=== PATIENT | female | born 1945 | race Caucasian/White ===

== ENCOUNTER 2016-06-17 21:11 | Emergency (ER) | payer MEDICARE, BC ==
[2016-06-17] MEDS ORDERED: AMOXICILLIN 250 MG CAP PO ONE (22:42)
[2016-06-17] MEDS ORDERED: SULFAMETHOXAZOLE/TRIMETHOPRI 800/160 MG PO ONE (22:43)
[2016-06-17] MEDS ORDERED: AMOXICILLIN 125/5 ML BOTTLE ONE (23:02)
[2016-06-17] MEDS ORDERED: SULFAMETHOXAZOLE/TRIMETHOPRI 800/160 MG ONE (23:02)
[2016-06-17] MEDS ORDERED: ACETAMINOPHEN 325 MG PO ONE (23:21)
[2016-06-17] MEDS ORDERED: ACETAMINOPHEN 325 MG ONE (23:22)
[2016-06-18 01:49] VITALS: BP 137/63; PULSE 73; RESP 20; TEMP 101.8; O2SAT 97
== END 2016-06-17 23:58 | disposition home or self-care (01) | DRG 639 ==
LOC: ED 21:11
DX: E11.621 Type 2 diabetes mellitus with foot ulcer (principal); L97.519 Non-pressure chronic ulcer of other part of right foot with unspecified severity
CPT/HCPCS: 87070; 87077; 87186; 99284; 99285; A6232

== ENCOUNTER 2017-03-20 07:38 | Inpatient (IN) | payer MEDICARE, BC ==
[2017-03-20] MEDS ORDERED: VANCOMYCIN HCL 500 MG PDS 1,000 MG in SODIUM CHLORIDE 0.9% 250 ML 250 ML IV ONE (14:32)
[2017-03-20] MEDS ORDERED: PIPERACILLIN/TAZOBACT 3.375 GM 3.375 GM in SODIUM CHLORIDE 0.9% 100 ML 100 ML IV ONE (14:32)
[2017-03-20 14:34] LABS: HEMATOCRIT 28 % (35-47); MEAN CORPUSCULAR HGB CONC 31.9 gm/dl (32.0-36.0); MEAN CORPUSCULAR VOLUME 83 fL (81-99)
[2017-03-20 14:35] LABS: NEUTROPHILS % (AUTO) 62.3 % (37-80)
[2017-03-20 14:36] LABS: MONOCYTES % (AUTO) 7.1 % (0-12)
[2017-03-20 14:38] LABS: BASOPHILS % (AUTO) 1 % (0-3); EOSINOPHILS % (AUTO) 3 % (0-9)
[2017-03-20 15:02] LABS: ALBUMIN 2.4 gm/dl (3.4-5.0); CALCIUM 10.2 mg/dl (8.5-10.1); POTASSIUM 4.8 mMol/L (3.5-5.1)
[2017-03-20] MEDS ORDERED: SODIUM CHLORIDE 0.9% 100 ML 100 ML IV ONE (15:46)
[2017-03-20] MEDS ORDERED: PIPERACILLIN/TAZOBACT 3.375 GM PDS IV ONE ×2 (15:46→20:12)
[2017-03-20] MEDS ORDERED: PATIENT EDUCATION 1 MISC PRN (16:28)
[2017-03-20] MEDS ORDERED: VANCOMYCIN HYDROCHLORIDE 500 MG PDS IV ONE (16:30)
[2017-03-20] MEDS ORDERED: SODIUM CHLORIDE 0.9% 250 ML 250 ML IV ONE (16:32)
[2017-03-20] MEDS: SODIUM CHLORIDE 0.9% 1000ML 1,000 ML IV SCH (18:02)
[2017-03-20] MEDS ORDERED: PHARMACOKINETICS 1 MISC PRN (18:51)
[2017-03-20] MEDS ORDERED: HYDRALAZINE HYDROCHLORIDE 10 MG TAB PO ONE (19:05)
[2017-03-20] MEDS: PIPERACILLIN/TAZOBACT 3.375 GM 3.375 GM in SODIUM CHLORIDE 0.9% 100 ML 100 ML IV SCH (20:24)
[2017-03-20] MEDS: INSULIN GLARGINE, RECOMBINAN 100 U/ML SOL SC SCH (20:47)
[2017-03-20] MEDS: HUMALOG PEN 100 U/ML SC SCH (20:47)
[2017-03-21] MEDS ORDERED: SODIUM CHLORIDE 0.9% 100 ML 100 ML IV ONE ×4 (00:44→18:36)
[2017-03-21] MEDS ORDERED: PIPERACILLIN/TAZOBACT 3.375 GM PDS IV ONE ×4 (00:44→18:36)
[2017-03-21] MEDS: PIPERACILLIN/TAZOBACT 3.375 GM 3.375 GM in SODIUM CHLORIDE 0.9% 100 ML 100 ML IV SCH ×4 (00:51→18:43)
[2017-03-21] MEDS: SODIUM CHLORIDE 0.9% 1000ML 1,000 ML IV SCH ×2 (04:19→17:51)
[2017-03-21] MEDS ORDERED: SODIUM CHLORIDE 0.9% 250 ML 250 ML IV ONE (05:28)
[2017-03-21] MEDS ORDERED: VANCOMYCIN HYDROCHLORIDE 500 MG PDS IV ONE (05:28)
[2017-03-21] MEDS: VANCOMYCIN HCL 500 MG PDS 1,500 MG in SODIUM CHLORIDE 0.9% 250 ML 250 ML IV SCH (05:41)
[2017-03-21 07:23] LABS: CALCIUM 9.1 mg/dl (8.5-10.1); POTASSIUM 4.9 mMol/L (3.5-5.1)
[2017-03-21 07:58] LABS: HEMATOCRIT 28 % (35-47)
[2017-03-21] MEDS: HUMALOG PEN 100 U/ML SC SCH ×4 (08:27→21:28)
[2017-03-21] MEDS ORDERED: FERROUS SULFATE 325 MG TAB PO SCH (09:00)
[2017-03-21] MEDS ORDERED: INSULIN GLARGINE, RECOMBINAN 100 U/ML SOL SC ONE (09:00)
[2017-03-21] MEDS: FERROUS GLUCONATE 324 MG TABLET PO SCH (09:20)
[2017-03-21] MEDS: AMLODIPINE 5 MG TAB PO SCH (09:52)
[2017-03-21] MEDS: LISINOPRIL 20 MG TAB PO SCH (10:51)
[2017-03-21] MEDS: MULTIVITAMIN2 1 EA TAB PO SCH (10:51)
[2017-03-21] MEDS: FUROSEMIDE 20 MG TAB PO SCH (10:51)
[2017-03-21 21:14] LABS: BASOPHILS % (AUTO) 1 % (0-3); EOSINOPHILS % (AUTO) 2 % (0-9); MEAN CORPUSCULAR VOLUME 83 fL (81-99); MONOCYTES % (AUTO) 7.7 % (0-12); NEUTROPHILS % (AUTO) 65.9 % (37-80)
[2017-03-21] MEDS: INSULIN GLARGINE, RECOMBINAN 100 U/ML SOL SC SCH (21:28)
[2017-03-22] MEDS ORDERED: PIPERACILLIN/TAZOBACT 3.375 GM PDS IV ONE (00:41)
[2017-03-22] MEDS ORDERED: SODIUM CHLORIDE 0.9% 100 ML 100 ML IV ONE (00:41)
[2017-03-22 01:05] VITALS: RESP 16; O2SAT 93
[2017-03-22] MEDS: PIPERACILLIN/TAZOBACT 3.375 GM 3.375 GM in SODIUM CHLORIDE 0.9% 100 ML 100 ML IV SCH ×2 (01:06→09:31)
[2017-03-22] MEDS: SODIUM CHLORIDE 0.9% 1000ML 1,000 ML IV SCH (05:42)
[2017-03-22] MEDS ORDERED: SODIUM CHLORIDE 0.9% 250 ML 250 ML IV ONE ×2 (06:21→06:24)
[2017-03-22] MEDS ORDERED: VANCOMYCIN HYDROCHLORIDE 500 MG PDS IV ONE (06:21)
[2017-03-22] MEDS: VANCOMYCIN HCL 500 MG PDS 1,500 MG in SODIUM CHLORIDE 0.9% 250 ML 250 ML IV SCH (06:35)
[2017-03-22 07:36] LABS: CALCIUM 9.4 mg/dl (8.5-10.1); POTASSIUM 4.8 mMol/L (3.5-5.1)
[2017-03-22 07:39] VITALS: BP 177/76; PULSE 66; TEMP 98.9
[2017-03-22 07:40] LABS: BASOPHILS % (AUTO) 1 % (0-3); EOSINOPHILS % (AUTO) 1 % (0-9); HEMATOCRIT 25 % (35-47); MEAN CORPUSCULAR HGB CONC 33.1 gm/dl (32.0-36.0); MEAN CORPUSCULAR VOLUME 83 fL (81-99); MONOCYTES % (AUTO) 5.2 % (0-12); NEUTROPHILS % (AUTO) 72.7 % (37-80)
[2017-03-22] MEDS: HUMALOG PEN 100 U/ML SC SCH (08:30)
[2017-03-22] MEDS: FERROUS GLUCONATE 324 MG TABLET PO SCH (08:39)
[2017-03-22] MEDS: FUROSEMIDE 20 MG TAB PO SCH (08:40)
[2017-03-22] MEDS: MULTIVITAMIN2 1 EA TAB PO SCH (08:41)
[2017-03-22] MEDS: AMLODIPINE 5 MG TAB PO SCH (08:41)
[2017-03-22] MEDS: LISINOPRIL 20 MG TAB PO SCH (08:42)
[2017-03-22] MEDS: INSULIN GLARGINE, RECOMBINAN 100 U/ML SOL SC SCH (08:47)
== END 2017-03-22 09:35 | disposition short-term general hospital (02) | DRG 982 ==
LOC: WOUND 07:38 → UNDOADMIN 14:24 → ACUTE CARE 14:24
PROVIDERS: ADMIT Family Medicine; ATTEND Family Medicine
PROC: 0KBV0ZZ Excision of Right Foot Muscle, Open Approach (ICD-10-PCS; principal; 2017-03-21)
DX: E11.621 Type 2 diabetes mellitus with foot ulcer (principal); L97.418 Non-pressure chronic ulcer of right heel and midfoot with other specified severity; M86.9 Osteomyelitis, unspecified; E11.22 Type 2 diabetes mellitus with diabetic chronic kidney disease; L84 Corns and callosities; R60.0 Localized edema; L03.115 Cellulitis of right lower limb; M84.477A Pathological fracture, right toe(s), initial encounter for fracture; I12.9 Hypertensive chronic kidney disease with stage 1 through stage 4 chronic kidney disease, or unspecified chronic kidney disease; N18.9 Chronic kidney disease, unspecified; Z79.4 Long term (current) use of insulin; Z91.19 Patient's noncompliance with other medical treatment and regimen; E11.65 Type 2 diabetes mellitus with hyperglycemia
CPT/HCPCS: 36415; 73630; 73718; 80048; 80053; 82962; 85025; 85651; 87040; 87070; 87075; 87077; 87186; 97597; 99070; 99214; 99232; J1815; J1817; J2543; J3370; A6232; A6402; A6446; A9270-GY